=== PATIENT | female | born 1985 | race Caucasian/White ===

== ENCOUNTER → 2019-04-17 10:18 | Outpatient (CLI) | payer OTHER, SELFPAY ==
[2019-04-17 11:25] LABS: Hematocrit 40.3 % (36-46); Hemoglobin 13.4 g/dL (12.0-16.0); Mean Corpuscular HGB Conc 33.2 % (30-36); Mean Corpuscular Hemoglobin 30.4 PG (26-34); Mean Corpuscular Volume 91.5 fL (80-100); Platelet Count 185 X10^3/uL (150-400); Red Cell Distribution Width 13.2 % (11.6-14.8)
[2019-04-17 12:32] LABS: TSH w/ Reflex to FT4 1.01 uIU/mL (0.47-4.68)
[2019-04-17 12:59] LABS: Neutrophils Absolute Manual 1760 /uL (3000-5900); Total Cells Counted 100
[2019-04-17 13:00] LABS: RBC Morphology Normal Morphology
== END ==
PROVIDERS: PCP Nurse Practitioner; Visit Provider Nurse Practitioner
DX: B99.9 Unspecified infectious disease (principal); R63.4 Abnormal weight loss
CPT/HCPCS: 36415; 84443; 85025

== ENCOUNTER → 2019-04-22 11:12 | Outpatient (CLI) | payer OTHER, SELFPAY ==
--- NOTE | 2019-04-22 11:43 | DI.CT.S_ITS ---
PROCEDURE: CT SOFT TISSUE NECK W CON INDICATIONS: left lymph node swelling TECHNIQUE: After the administration of intravenous contrast, 3.0 mm axial sections acquired from the sella to the aortic arch. Additional oblique axial 3.0 mm sections acquired through the pharynx. 3 mm thick coronal and sagittal reformats were generated. For radiation dose reduction, the following was used: automated exposure control. COMPARISON: None. FINDINGS: Image quality: Excellent. Lymph nodes: No enlarged lymph nodes seen throughout the neck. Vessels: Visualized vasculature appears patent. Neck spaces: The oropharynx, nasopharynx, and pharynx demonstrate no mucosal lesions. The vocal cords, false vocal cords, pyriform sinuses, epiglottis, vallecula, and tongue base all appear normal. Extramucosal spaces appear unremarkable. Glands: The parotid and submandibular glands appear normal. Thyroid gland contains a 6 mm hypoattenuating nodule in the left lobe.. Miscellaneous: Visualized brain and orbits appear normal. Lung apices appear clear. Superficial soft tissues appear normal. Bones: No suspicious bony lesions. Visualized sinuses and mastoids appear unremarkable. IMPRESSION: 1. No lymphadenopathy based on size criteria. 2. No abnormal mass identified by CT imaging. Decision to biopsy clinically palpable mass should be based on clinical assessment. Dictated by: Amaya Woodson MD, PhD on 04/22/2019 at 13:51 Approved by: Amaya Woodson MD, PhD on 04/22/2019 at 13:57
== END ==
PROVIDERS: PCP Nurse Practitioner; Visit Provider Nurse Practitioner
DX: R59.0 Localized enlarged lymph nodes (principal)
CPT/HCPCS: 70491; Q9967

== ENCOUNTER → 2019-05-08 09:54 | Outpatient (CLI) | payer OTHER, SELFPAY ==
--- NOTE | 2019-05-08 09:58 | DI.US.S_ITS ---
PROCEDURE: US THYROID INDICATIONS: NODULE SEEN ON CAT SCAN TECHNIQUE: Real-time scanning was performed of the thyroid gland, with image documentation. COMPARISON: [facility], CT, CT SOFT TISSUE NECK W CON, 04/22/2019, 11:30. FINDINGS: Right: Thyroid lobe measures 5.5 x 1.5 x 1.4 cm, and is homogeneous in echotexture. Left: Thyroid lobe measures 5.2 x 1.3 x 1.1 cm, and is homogenous in echotexture. Isthmus: 2.0 mm thick. Nodule number: 1 Location: Right mid Size: 0.2 x 0.2 x 0.2 cm. Composition: Cystic Echogenicity: Anechoic Shape: wider than tall. Margins: Smooth Echogenic foci: Common tail artifact Total points: 0 ACR TI-RADS category: Benign colloid cyst Nodule number: 2 Location: Left mid Size: 1.2 x 0.7 x 0.5 cm. Composition: Solid Echogenicity: Isoechoic Shape: wider than tall. Margins: Smooth Echogenic foci: Peripheral calcifications Total points: 5 ACR TI-RADS category: Moderately suspicious IMPRESSION: Moderately suspicious left thyroid nodule. Given the small size, no fine-needle aspiration is recommended at this time. Recommend continued followup ultrasound as detailed below. ACR TI-RADS definitions and recommendations: TI-RADS 1 (benign): 0 points. FNA not needed. TI-RADS 2 (not suspicious): 2 points. FNA not needed. TI-RADS 3 (mildly suspicious): 3 points. * FNA if 2.5 cm or larger, follow up if 1.5 cm or larger (at 1, 3, and 5 years). TI-RADS 4 (moderately suspicious): 4-6 points. * FNA if 1.5 cm or larger, follow up if 1 cm or larger (at 1, 2, 3, and 5 years). TI-RADS 5 (highly suspicious): 7 points or more. , Tail artifact * FNA if 1 cm or larger, follow up if 0.5 cm or larger (every year for 5 years). Dictated by: Alex Rausch [facility] Interpreted: Abad Wong MD on 05/08/2019 at 10:59 Approved by: Abad Wong M.D. on 05/08/2019 at 14:52
== END ==
PROVIDERS: PCP Nurse Practitioner; Visit Provider Nurse Practitioner
DX: E04.1 Nontoxic single thyroid nodule (principal)
CPT/HCPCS: 76536